=== PATIENT | female | born 1955 | race Caucasian/White ===

== ENCOUNTER 2018-11-25 03:00 | Emergency (ER) | payer MEDICARE, OTHER ==
[~2018-11-25] VITALS: Ht 175.3 cm; Wt 80.0 kg
[2018-11-25 03:01] VITALS: BP 150/91
[2018-11-25] MEDS ORDERED: DIPH,PERTUSS(ACELL),TET VAC/PF 0.5 ML IM-VACC ONE ×2 (03:13→04:00)
[2018-11-25] MEDS ORDERED: LIDOCAINE-MPF 1%, 5ML ONE (03:13)
[2018-11-25] MEDS ORDERED: DIPHTHERIA-TETANUS ADULT 0.5ML IM-VACC ONE (03:30)
[2018-11-25] MEDS ORDERED: BACITRACIN ZINC OINT 500U/GM, 0.9 GM ONE ×2 (04:35→04:39)
== END 2018-11-25 04:40 | disposition home or self-care (01) ==
LOC: ED 04:20
DX: S91.111A Laceration without foreign body of right great toe without damage to nail, initial encounter (principal); W45.8XXA Other foreign body or object entering through skin, initial encounter; Y93.89 Activity, other specified; Y92.89 Other specified places as the place of occurrence of the external cause; Y99.8 Other external cause status
CPT/HCPCS: 12041; 90471; 90714